=== PATIENT | male | born 1985 | race Two or more races ===

== ENCOUNTER 2016-06-16 08:06 | Inpatient (IN) | payer MEDICAID ==
[2016-06-16] MEDS ORDERED: Albuterol Nebulizer 2.5mg/3mL HHN PRN (08:58)
[2016-06-16 09:19] VITALS: BP 120/65
[2016-06-16] MEDS: Levofloxacin 500mg/100mL 500 MG/100 ML BAG IV SCH (10:19)
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
[2016-06-16] MEDS: Hydrocodone/APAP 5mg/325mg Tab PO PRN ×2 (15:54→21:33)
[2016-06-16 16:00] LABS: URINE BILIRUBIN NEGATIVE (NEGATIVE); URINE BLOOD NEGATIVE (NEGATIVE); URINE COLOR YELLOW; URINE GLUCOSE (UA) NEGATIVE (NEGATIVE); URINE KETONE NEGATIVE (NEGATIVE); URINE PH 6.5; URINE PROTEIN NEGATIVE (NEGATIVE)
[2016-06-17] MEDS: Hydrocodone/APAP 5mg/325mg Tab PO PRN ×2 (03:36→14:19)
[2016-06-17 05:44] LABS: % BASOPHILS 0.2 % (0.0-2.0); % EOSINOPHILS 0.4 % (0.0-5.0); % LYMPHOCYTES 22.6 % (20.0-50.0); % MONOCYTES 9.7 % (2.0-10.0); % NEUTROPHILS 67.1 % (40.0-80.0); HEMOGLOBIN 15.2 gm/dL (13.2-17.3); MEAN CELL VOLUME 84.6 fl (80-99); MEAN CORPUSCULAR HEMOGLOBIN 27.9 pg (26.0-30.0); MEAN PLATELET VOLUME 9.3 fl; NEUTROPHILE ABSOLUTE 8.5 Th/cmm (1.8-8.0); PLATELET COUNT 126 Th/cmm (150-400); RED BLOOD COUNT 5.44 Mil/cmm (4.30-5.70); RED CELL DISTRIBUTION WIDTH 12.2 % (11.5-20.0); WHITE BLOOD COUNT 12.7 Th/cmm (4.8-10.8)
[2016-06-17 06:46] LABS: ALB/GLOB RATIO 1.2 (1.0-1.8); ALKALINE PHOSPHATASE 60 U/L (34-104); ANION GAP 7.5 (7.0-16.0); BUN - UREA NITROGEN 8 mg/dL (7-25); CALCIUM SERUM 8.9 mg/dL (8.6-10.3); CARBON DIOXIDE 24.3 mEq/L (21.0-31.0); CHLORIDE 105 mEq/L (98-107); CREATININE - SERUM 0.8 mg/dL (0.7-1.3); GLUCOSE 111 mg/dL (70-105); POTASSIUM SERUM 3.8 mEq/L (3.5-5.1); SGOT 23 U/L (13-39); SGPT/ALT 68 U/L (7-52); SODIUM SERUM 133 mEq/L (136-145)
[2016-06-17] MEDS: Levofloxacin 500mg/100mL 500 MG/100 ML BAG IV SCH (10:30)
--- NOTE | 2016-06-17 10:33 | Internal Medicine Prog Note ---
Internal Medicine Subjective - Subjective Patient seen and examined:: with staff, chart reviewed Patient is:: awake, arousable, in bed Patient Complaints of:: congestion Per staff patient is:: no adverse event Internal Medicine Objective - Results Result Diagrams: 06/17/16 05:30 06/17/16 05:30 Recent Labs: Laboratory Last Values WBC 12.7 Th/cmm (4.8-10.8) H 06/17/16 05:30 RBC 5.44 Mil/cmm (4.30-5.70) 06/17/16 05:30 Hgb 15.2 gm/dL (13.2-17.3) 06/17/16 05:30 Hct 46.0 % (39.0-49.0) 06/17/16 05:30 MCV 84.6 fl (80-99) 06/17/16 05:30 MCH 27.9 pg (26.0-30.0) 06/17/16 05:30 MCHC Differential 33.0 pg (28.0-36.0) 06/17/16 05:30 RDW 12.2 % (11.5-20.0) 06/17/16 05:30 Plt Count 126 Th/cmm (150-400) L 06/17/16 05:30 MPV 9.3 fl 06/17/16 05:30 Neutrophils % 67.1 % (40.0-80.0) 06/17/16 05:30 Lymphocytes % 22.6 % (20.0-50.0) 06/17/16 05:30 Monocytes % 9.7 % (2.0-10.0) 06/17/16 05:30 Eosinophils % 0.4 % (0.0-5.0) 06/17/16 05:30 Basophils % 0.2 % (0.0-2.0) 06/17/16 05:30 Sodium 133 mEq/L (136-145) L 06/17/16 05:30 Potassium 3.8 mEq/L (3.5-5.1) 06/17/16 05:30 Chloride 105 mEq/L (98-107) 06/17/16 05:30 Carbon Dioxide 24.3 mEq/L (21.0-31.0) 06/17/16 05:30 Anion Gap 7.5 (7.0-16.0) 06/17/16 05:30 BUN 8 mg/dL (7-25) 06/17/16 05:30 Creatinine 0.8 mg/dL (0.7-1.3) 06/17/16 05:30 Est GFR ( Amer) > 60.0 ml/min 06/17/16 05:30 Est GFR (Non-Af Amer) > 60.0 ml/min 06/17/16 05:30 BUN/Creatinine Ratio 10.0 06/17/16 05:30 Glucose 111 mg/dL (70-105) H 06/17/16 05:30 Calcium 8.9 mg/dL (8.6-10.3) 06/17/16 05:30 Total Bilirubin 1.0 mg/dL (0.3-1.0) 06/17/16 05:30 AST 23 U/L (13-39) 06/17/16 05:30 ALT 68 U/L (7-52) H 06/17/16 05:30 Alkaline Phosphatase 60 U/L (34-104) 06/17/16 05:30 Total Protein 6.5 gm/dL (6.0-8.3) 06/17/16 05:30 Albumin 3.6 gm/dL (4.2-5.5) L 06/17/16 05:30 Globulin 2.9 gm/dL 06/17/16 05:30 Albumin/Globulin Ratio 1.2 (1.0-1.8) 06/17/16 05:30 TSH 1.85 uIU/ml (0.34-5.60) 06/16/16 09:50 Urine Source CLEAN C 06/16/16 15:15 Urine Color YELLOW 06/16/16 15:15 Urine Clarity CLEAR (CLEAR) 06/16/16 15:15 Urine pH 6.5 06/16/16 15:15 Ur Specific [place] 1.015 (1.005-1.030) 06/16/16 15:15 Urine Protein NEGATIVE mg/dL (NEGATIVE) 06/16/16 15:15 Urine Glucose (UA) NEGATIVE mg/dL (NEGATIVE) 06/16/16 15:15 Urine Ketones NEGATIVE mg/dL (NEGATIVE) 06/16/16 15:15 Urine Blood NEGATIVE (NEGATIVE) 06/16/16 15:15 Urine Nitrate NEGATIVE (NEGATIVE) 06/16/16 15:15 Urine Bilirubin NEGATIVE (NEGATIVE) 06/16/16 15:15 Urine Urobilinogen 1.0 E.U./dL (0.2 - 1.0) 06/16/16 15:15 Ur Leukocyte Esterase NEGATIVE (NEGATIVE) 06/16/16 15:15 - Physical Exam Vitals and I&O: Vital Signs Temp 97.8 F 06/17/16 08:29 Pulse 101 06/17/16 08:29 Resp 20 06/17/16 08:29 BP 144/83 06/17/16 08:29 Pulse Ox 95 06/17/16 08:29 Intake & Output 06/16/16 06/17/16 06/17/16 18:59 06:59 18:59 Intake Total 1000 1050 Output Total 1000 800 Balance 0 250 Weight (lbs) 86.183 kg Intake: Intake, IV Amount 100 250 Levofloxacin 500mg/100mL 100 500 mg In 100 ml @ 100 mls/hr IV Q24H [facility] Rx#: [id number] Vancomycin HCl 1 gm In 250 Sodium Chloride 0.9% 250 ml @ 166.667 mls/hr IV Q24H [facility] Rx#:[id number] Oral 900 800 Output: Urine 1000 800 Active Medications: Current Medications Acetaminophen (Tylenol) 650 mg PO Q4H PRN PRN Reason: Pain or Fever >101 Stop: 08/15/16 08:57 Last Admin: 06/17/16 06:13 Dose: 650 mg Acetaminophen/Hydrocodone Bitart ([place] 5mg/325mg) 1 tab PO Q4H PRN PRN Reason: Pain (Severe) Stop: 08/15/16 08:57 Last Admin: 06/17/16 03:36 Dose: 1 tab Albuterol Sulfate (Albuterol 2.5mg/3ml Neb Ud) 2.5 mg HHN Q2HRT PRN PRN Reason: Shortness of Breath or Wheeze Stop: 08/15/16 08:57 Heparin Sodium (Porcine) (Heparin) 5,000 units SUBQ Q12HR [facility] Stop: 08/15/16 08:59 Last Admin: 06/17/16 08:47 Dose: 5,000 units Levofloxacin (Levaquin Pb) 500 mg in 100 mls @ 100 mls/hr IV Q24H [facility] Stop: 08/15/16 10:59 Last Admin: 06/17/16 10:30 Dose: 100 mls/hr Vancomycin HCl 1 gm/ Sodium (Chloride) 250 mls @ 166.667 mls/hr IV Q24H [facility] Stop: 08/16/16 03:59 Last Infusion: 06/17/16 05:10 Dose: Infused Miscellaneous (Vancomycin Iv Per Pharmacy) 1 ea MC PRN PRN PRN Reason: PROTOCOL Stop: 08/16/16 09:03 Ondansetron HCl (Zofran) 4 mg IV Q8H PRN PRN Reason: Nausea / Vomiting Stop: 08/15/16 08:57 Zolpidem Tartrate (Ambien) 10 mg PO HS PRN PRN Reason: Insomnia Stop: 08/15/16 20:59 Last Admin: 06/16/16 20:18 Dose: 10 mg General: alert HEENT: NC/AT, PERRLA Neck: Supple, No JVD Lungs: CTAB Cardiovascular: RRR, Normal S1, Normal S2 Abdomen: soft non-tender, globular Extremities: pedal pulses, other (r knee warmth to touch) Neurological: no change Internal Medicine Assmt/Plan - Assessment Assessment: fever r knee cellulitis \ acute pain obesity - Plan Plan: cont on iv abx pain control will check labs will follow up cx from [facility]ind[facility] rn
--- NOTE | 2016-06-19 11:13 | Diagnostic Imaging Report ---
Right knee (3 views) HISTORY: Pain No focal lesions. No fractures. Joint spaces appear normal. IMPRESSION: No acute abnormalities
== END 2016-06-17 15:00 | disposition left against medical advice (07) | DRG 720 ==
LOC: MSI 08:06
PROVIDERS: ADMIT Internal Medicine; ATTEND Internal Medicine
DX: A41.9 Sepsis, unspecified organism (principal); E87.1 Hypo-osmolality and hyponatremia; L03.115 Cellulitis of right lower limb; E66.9 Obesity, unspecified; F17.210 Nicotine dependence, cigarettes, uncomplicated; Z68.25 Body mass index [BMI] 25.0-25.9, adult; R50.9 Fever, unspecified
CPT/HCPCS: 36415-UA; 73562-TC-RT; 80053-TC; 81003-TC; 84443-TC; 85025-TC; 94760; J1644; J1956; J3370; Z7610